=== PATIENT | male | born 1950 | race Caucasian/White ===

== ENCOUNTER 2019-12-20 02:42 | Emergency (ER) | payer MEDICARE, MEDICAID ==
[2019-12-20] MEDS ORDERED: NORMAL SALINE 500 ML IV ONE ×2 (02:51→05:04)
--- NOTE | 2019-12-20 02:53 | ER Document Report ---
ED General - General Chief Complaint: Near Syncope Stated Complaint: SYNCOPE Time Seen by Provider: 12/20/19 02:50 Primary Care Provider: YOLANDA CARR MD [Primary Care Provider] - Follow up as needed Notes: Patient is a 68-year-old male that comes to the emergency department from [facility] by EMS for chief complaint of episodes where he seemed unresponsive for brief periods throughout the day. He also has a worsening cough although he has had a chronic cough for at least weeks. He also had somewhat low blood glucose per EMS and was given oral glucose twice today but these numbers were not provided to me. EMS cannot give a description of the unresponsive periods because reportedly the day team reported it to the assistant shift supervisor, and the assistant shift supervisor giving report did not witness this and could not give detailed descriptions of the events. Patient does take insulin for diabetes, has a history of COPD, CHF, LA, BPH, and multiple sclerosis with chronic left-sided weakness and patient is bedbound because he cannot move his left leg. Patient does have DNR paperwork with him. Patient is on 3 L nasal cannula "the majority of the time" per EMS. Patient denies any complaints, he is oriented to person, place, and he states "I do not know what is wrong with me". He denies any locations of pain or any other complaints at this time. Medications include Plavix, aspirin, Lasix, metoprolol, and hydrocodone/acetaminophen. TRAVEL OUTSIDE OF THE [place] IN LAST 30 DAYS: No Past Medical History - General Information source: Patient - Social History Smoking Status: Former Smoker Frequency of alcohol use: None Drug Abuse: None Lives with: Intermediate Family History: Reviewed & Not Pertinent Patient has suicidal ideation: No Patient has homicidal ideation: No - Past Medical History Cardiac Medical History: Reports: Hx Congestive Heart Failure, Hx Heart Attack Pulmonary Medical History: Reports: Hx COPD Neurological Medical History: Reports: Other - Multiple sclerosis with chronic left-sided weakness Endocrine Medical History: Reports: Hx Diabetes Mellitus Type 2 - Insulin- dependent Renal/ Medical History: Reports: Hx Benign Prostatic Hyperplasia - Immunizations Hx Diphtheria, Pertussis, Tetanus Vaccination: Yes Review of Systems - Review of Systems Constitutional: See HPI EENT: No symptoms reported Cardiovascular: See HPI Respiratory: No symptoms reported Gastrointestinal: No symptoms reported Genitourinary: No symptoms reported Male Genitourinary: No symptoms reported Musculoskeletal: No symptoms reported Skin: No symptoms reported Hematologic/Lymphatic: No symptoms reported Neurological/Psychological: See HPI Physical Exam - Vital signs Vitals: Pulse Resp BP Pulse Ox 111 H 18 161/90 H 100 12/20/19 02:47 12/20/19 02:47 12/20/19 02:47 12/20/19 02:47 - Notes Notes: GENERAL: Alert, interacts well. No acute distress. HEAD: Normocephalic, atraumatic. EYES: Pupils equal, round, and reactive to light. Extraocular movements intact. ENT: Oral mucosa parched, tongue midline. Oropharynx unremarkable. Airway patent. NECK: Full range of motion. Supple. Trachea midline. LUNGS: Slightly decreased lung sounds bilaterally, occasional congested cough, no wheezing, tachypnea, or distress. Speaks in full sentences HEART: Tachycardia, normal rhythm, no murmur ABDOMEN: Soft, non-tender. Non-distended. Bowel sounds present in all 4 quadrants. GENITOURINARY: [place] catheter in place, no swelling, tenderness, bleeding, or other abnormality noted. There is urine in the [place] bag. EXTREMITIES: Moves all 4 extremities spontaneously. No edema, normal radial and dorsalis pedis pulses bilaterally. No cyanosis. BACK: no cervical, thoracic, lumbar midline tenderness. No saddle anesthesia, normal distal neurovascular exam. Moves all extremities in full range of motion. NEUROLOGICAL: Alert and oriented x3. Normal speech. Cranial nerves II through XII grossly intact. 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 PSYCH: Normal affect, normal mood. Pleasant. SKIN: Warm, dry, normal turgor. No rashes or lesions noted. Course - Re-evaluation Re-evalutation: 12/20/19 03:11 I did speak to nurse who got report over the phone, she states that patient had blood glucose of 65 and 55 on 2 separate occasions and was given oral glucose for them. Reportedly patient had brief periods where he would not respond and either had his eyes closed or "rolled back". No other details obtained or known by staff reportedly. Patient mildly tachycardic, this did improve down to about 100 after small amount of IV fluids. CBC unremarkable, chemistry shows elevated BUN and nonspecific otherwise. Urinalysis shows possible infection but patient does have a [place] catheter, culture will be placed because patient does not have a fever or any complaints. Blood cultures are also pending. CT of the head negative, chest x-ray unremarkable, EKG shows bundle branch block. However patient has not had any chest pain, shortness of breath, vomiting. Blood glucose is unremarkable here. Blood glucose was checked after patient was monitored for a while and is still unremarkable. Troponin is not elevated. Symptoms the patient is sent in for happened before assistant shift supervisor change, this happened during the morning, based on his evaluation now in this timeframe, in addition to patient not being on a sulfonylurea, patient seems to have had only transient hypoglycemia. He is also on a lot of sedating medications. There does not appear to be any acute finding otherwise, patient will be transported back to long-term care facility with return precautions. I did discuss with patient in detail. Patient states appreciation and agreement. Stable and well- appearing at time of discharge without any complaints. - Vital Signs Vital signs: Temp Pulse Resp BP Pulse Ox 111 H 18 161/90 H 100 12/20/19 02:47 12/20/19 02:47 12/20/19 02:47 12/20/19 02:47 - Laboratory Result Diagrams: 12/20/19 03:45 12/20/19 03:45 Laboratory results interpreted by me: 12/20/19 12/20/19 12/20/19 03:43 03:45 03:45 RDW 15.3 H Chloride 96 L BUN 46 H Glucose 154 H Alkaline Phosphatase 197 H Urine Protein 100 H Urine Ketones 20 H Urine Blood SMALL H Ur Leukocyte Esterase SMALL H - EKG Interpretation by Me Additional EKG results interpreted by me: EKG shows sinus tachycardia at a rate of 108, QTC is prolonged at 558, Left Bundle Branch Block is noted, unfortunately no comparison EKG is available. Discharge - Discharge Clinical Impression: Transient alteration of awareness, Hypoglycemia Condition: Stable Disposition: HOME, SELF-CARE Additional Instructions: His evaluation showed some dehydration, urine is borderline and we have a culture pending. The remaining work-up including imaging, laboratory work-up, and exam do not show any concerning findings. He may be getting too sedated from his regular medications. Discussed this with his primary care provider. Avoid giving insulin without meals. Return for any concerning symptoms including fever, change in mental status, difficulty breathing, vomiting, or any other concerning symptoms. Referrals: YOLANDA CARR MD [Primary Care Provider] - Follow up as needed
--- NOTE | 2019-12-20 03:55 | RADIOLOGY REPORT (SQ) ---
EXAM DESCRIPTION: XR CHEST 1 VIEW COMPLETED DATE/TME: 12/20/2019 02:50 CLINICAL HISTORY: 68 years, Male, worsening cough COMPARISON: None. NUMBER OF VIEWS: One TECHNIQUE: AP view of the chest LIMITATIONS: None. FINDINGS: Lungs are clear except for some bibasilar subsegmental atelectasis. The heart is normal in size. There is no pneumothorax or pleural effusion. Mildly displaced distended loops of bowel are noted along the upper abdomen. IMPRESSION: No acute cardiopulmonary abnormality. copyright 2010 [employer]- All Rights Reserved
[2019-12-20 04:21] LABS: ABSOLUTE BASOPHILS # (AUTO) 0.1 10^3/uL (0.0-0.2); ABSOLUTE EOSINOPHILS # (AUTO) 0.1 10^3/uL (0.0-0.6); ABSOLUTE LYMPHOCYTES (AUTO) 1.4 10^3/uL (0.5-4.7); ABSOLUTE MONOCYTES (AUTO) 1.1 10^3/uL (0.1-1.4); ABSOLUTE NEUT (AUTO) 7.4 10^3/uL (1.7-8.2); BASOPHILS % (AUTO) 0.6 % (0-2); EOSINOPHILS % (AUTO) 1.2 % (0-6); HEMATOCRIT 42.8 % (37.9-51.0); HEMOGLOBIN 14.3 g/dL (13.5-17.0); LYMPHOCYTES % (AUTO) 13.6 % (13-45); MEAN CORPUSCULAR HEMOGLOBIN 28.5 pg (27.0-33.4); MEAN CORPUSCULAR HGB CONC 33.5 g/dL (32.0-36.0); MEAN CORPUSCULAR VOLUME 85 fl (80-97); MONOCYTES % (AUTO) 10.9 % (3-13); PLATELET COUNT 347 10^3/uL (150-450); RED BLOOD COUNT 5.03 10^6/uL (4.35-5.55); RED CELL DISTRIBUTION WIDTH 15.3 % (11.5-14.0); SEGMENTED NEUTROPHILS % (AUTO) 73.7 % (42-78); TOTAL CELLS COUNTED % (AUTO) 100 %; WHITE BLOOD COUNT 10.1 10^3/uL (4.0-10.5)
[2019-12-20 04:22] LABS: APPEARANCE,URINE SLIGHTLY-CLOUDY; BILIRUBIN,URINE NEGATIVE (NEGATIVE); COLOR,URINE YELLOW; GLUCOSE, URINE NEGATIVE (NEGATIVE); KETONES,URINE 20 mg/dL (NEGATIVE); LEUKOCYTE ESTERASE,URINE SMALL (NEGATIVE); NITRITE,URINE NEGATIVE (NEGATIVE); PROTEIN,URINE 100 mg/dL (NEGATIVE); URINE SPECIFIC GRAVITY 1.014; UROBILINOGEN,URINE NEGATIVE mg/dL (<2.0)
[2019-12-20 04:38] LABS: A TYPE INFLUENZA AG NEGATIVE (NEGATIVE); B INFLUENZA AG NEGATIVE (NEGATIVE)
--- NOTE | 2019-12-20 04:39 | RADIOLOGY REPORT (SQ) ---
EXAM DESCRIPTION: CT HEAD WITHOUT IV CONTRAST COMPLETED DATE/TME: 12/20/2019 02:50 CLINICAL HISTORY: 68 years Male, AMS COMPARISON: None. TECHNIQUE: No contrast. Coronal and sagittal reformat. This exam was performed according to our departmental dose-optimization program, which includes automated exposure control, adjustment of the mA and/or kV according to patient size and/or use of iterative reconstruction technique. FINDINGS: No hemorrhage or infarct. No mass, mass effect, or midline shift. White matter microangiopathy, parenchymal volume loss, and atherosclerosis. Mild left maxillary mucosal thickening. Moderate right frontal mucosal thickening. Mild ethmoid mucosal thickening bilaterally. Brain and extra-axial structures appear otherwise intact. IMPRESSION: No acute findings.
[2019-12-20 04:45] LABS: ALKALINE PHOSPHATASE 197 U/L (38-126); ANION GAP 16 (5-19); ASPARTATE AMINO TRANSFERASE 21 U/L (17-59); BILIRUBIN,DIRECT 0.1 mg/dL (0.0-0.4); BILIRUBIN,TOTAL 0.6 mg/dL (0.2-1.3); BLOOD UREA NITROGEN 46 mg/dL (7-20); CALCIUM 10.2 mg/dL (8.4-10.2); CARBON DIOXIDE 27 mmol/L (22-30); CHLORIDE 96 mmol/L (98-107); GLUCOSE 154 mg/dL (75-110); POTASSIUM 4.6 mmol/L (3.6-5.0); TOTAL PROTEIN 7.1 g/dL (6.3-8.2)
[2019-12-20 04:56] LABS: VENOUS BLOOD BASE EXCESS 0.2 mmol/L; VENOUS BLOOD HCO3 25.3 mmol/L (20-32); VENOUS BLOOD PCO2 42.8 mmHg (35-63); VENOUS BLOOD PH 7.39 (7.30-7.42)
[2019-12-20 06:49] VITALS: BP 155/74
--- NOTE | 2019-12-20 08:54 | EKG REPORT ---
SEVERITY:- ABNORMAL ECG - SINUS TACHYCARDIA PROBABLE LEFT ATRIAL ABNORMALITY LEFT BUNDLE BRANCH BLOCK : Confirmed by: Alejandro Solorio MD 20-Dec-2019 08:54:16
== END 2019-12-20 06:49 | disposition home or self-care (01) ==
LOC: ER 02:42
DX: E11.649 Type 2 diabetes mellitus with hypoglycemia without coma (principal); Z79.4 Long term (current) use of insulin; R05 Cough; R00.0 Tachycardia, unspecified; G35 Multiple sclerosis; I50.9 Heart failure, unspecified; I44.7 Left bundle-branch block, unspecified; J44.9 Chronic obstructive pulmonary disease, unspecified; Z99.81 Dependence on supplemental oxygen; Z74.01 Bed confinement status; Z66 Do not resuscitate; Z79.899 Other long term (current) drug therapy; Z79.02 Long term (current) use of antithrombotics/antiplatelets; Z79.82 Long term (current) use of aspirin; Z79.891 Long term (current) use of opiate analgesic; Z87.891 Personal history of nicotine dependence
CPT/HCPCS: 93005; 99285; 96360; 36415; 87040; 87086; 82962; 85025; 87077; 87088; 80053; 81001; 84484; 87186; 82803; 87804; 71045; 70450; 93010; J7040